=== PATIENT | female | born 1970 | race Caucasian/White ===

== ENCOUNTER 2023-01-05 04:05 | Emergency (ER) | payer MEDICAID, OTHER ==
[~2023-01-05] VITALS: Ht 165.1 cm; Wt 100.0 kg
[2023-01-05] MEDS ORDERED: PREG150C PO (04:19)
[2023-01-05] MEDS ORDERED: METR-265 PO (04:20)
[2023-01-05] MEDS ORDERED: ACET300T48 PO (04:20)
[2023-01-05] MEDS ORDERED: ATOR80TA59 PO (04:21)
[2023-01-05] MEDS ORDERED: LEVO1TAB39 PO (04:21)
[2023-01-05] MEDS ORDERED: CYCL5TAB PO (04:22)
[2023-01-05] MEDS ORDERED: ASPI81CH33 PO (04:22)
[2023-01-05] MEDS ORDERED: BRIL90TA PO (04:23)
[2023-01-05] MEDS ORDERED: NITR0.4S14 SL (04:23)
[2023-01-05] MEDS ORDERED: TRAZ1TAB14 PO (04:24)
[2023-01-05] MEDS ORDERED: KETOROLAC 30 MG/ML 1ML VIAL IV ONE (04:55)
[2023-01-05] MEDS ORDERED: NS 1,000 ML IV ONE (04:55)
[2023-01-05] MEDS ORDERED: ISOVUE-370 76% 100ML VIAL As Ordered ONE (05:00)
[2023-01-05 05:36] LABS: BASO # 0.1 10^3/uL (0.0-0.2); BASO % 0.6 % (0.0-1.0); EOS # 0.3 10^3/uL (0.0-0.5); EOS % 1.9 % (0.0-3.0); HEMATOCRIT 43.6 % (36.0-47.0); HEMOGLOBIN 14.3 g/dl (12.0-15.5); LYMPH # 2.4 10^3/uL (1.5-5.0); LYMPH % 16.5 % (24.0-44.0); MEAN CORPUSCULAR HEMOGLOBIN 28.4 pg (27.0-33.0); MEAN CORPUSCULAR HGB CONC 32.8 g/dl (32.0-36.5); MEAN CORPUSCULAR VOLUME 86.5 fl (80.0-96.0); MONO # 1.1 10^3/uL (0.0-0.8); MONO % 7.9 % (2.0-8.0); NEUTROPHILS # 10.5 10^3/uL (1.5-8.5); NEUTROPHILS % 72.7 % (36.0-66.0); PLATELET COUNT, AUTOMATED 318 10^3/uL (150-450); RED BLOOD COUNT 5.04 10^6/uL (4.00-5.40); WHITE BLOOD COUNT 14.4 10^3/uL (4.0-10.0)
[2023-01-05] MEDS ORDERED: diphenhydrAMINE 50MG/ML VIAL IV STA (07:39)
[2023-01-05] MEDS ORDERED: methylPREDNISolone 125MG 2ML VIAL IV ONE (07:40)
[2023-01-05] MEDS ORDERED: CLINDAMYCIN 150MG CAPSULE PO ONE (08:10)
[2023-01-05] MEDS ORDERED: CLEO300C2 PO (08:39)
[2023-01-05] MEDS ORDERED: PRED20TA PO (08:39)
[2023-01-05] MEDS ORDERED: HYDR-3713 PO (08:39)
[2023-01-05 08:49] VITALS: BP 123/70; TEMP 98; O2SAT 95
== END 2023-01-05 08:55 | disposition home or self-care (01) ==
LOC: M ED 04:05
DX: K04.7 Periapical abscess without sinus (principal); L03.211 Cellulitis of face; R22.0 Localized swelling, mass and lump, head; E78.5 Hyperlipidemia, unspecified; F17.200 Nicotine dependence, unspecified, uncomplicated; Z88.0 Allergy status to penicillin; Z79.1 Long term (current) use of non-steroidal anti-inflammatories (NSAID); Z79.52 Long term (current) use of systemic steroids; Z79.899 Other long term (current) drug therapy
CPT/HCPCS: 70491; 80047; 83605; 85025; 96374; 96375; 99283; J1200; J1885; J2930; Q9967

== ENCOUNTER → 2023-03-23 | Outpatient (CLI) | payer OTHER ==
[~2023-03-23] MED LIST: ACET300T48 PO; ASPI81CH33 PO; ATOR80TA59 PO; BRIL90TA PO; CLEO300C2 PO; CYCL5TAB PO; HYDR-3713 PO; LEVO1TAB39 PO; METR-265 PO; NITR0.4S14 SL; PRED20TA PO; PREG150C PO; TRAZ1TAB14 PO
== END ==
LOC: M SOG 08:02
PROVIDERS: ATTEND Orthopaedic Surgery
DX: Z53.9 Procedure and treatment not carried out, unspecified reason (principal)

== ENCOUNTER → 2023-05-31 | Outpatient (CLI) | payer OTHER ==
[~2023-05-31] MED LIST changes: -PREG150C PO; +PREG150C2 PO
[2023-05-31 16:02] LABS: BASO # 0.1 10^3/uL (0.0-0.2); BASO % 0.7 % (0.0-1.0); EOS # 0.4 10^3/uL (0.0-0.5); EOS % 3.7 % (0.0-3.0); HEMATOCRIT 47.1 % (36.0-47.0); HEMOGLOBIN 15.4 g/dl (12.0-15.5); LYMPH # 2.7 10^3/uL (1.5-5.0); LYMPH % 28.3 % (24.0-44.0); MEAN CORPUSCULAR HEMOGLOBIN 28.2 pg (27.0-33.0); MEAN CORPUSCULAR HGB CONC 32.7 g/dl (32.0-36.5); MEAN CORPUSCULAR VOLUME 86.3 fl (80.0-96.0); MONO # 0.7 10^3/uL (0.0-0.8); MONO % 7.6 % (2.0-8.0); NEUTROPHILS # 5.7 10^3/uL (1.5-8.5); NEUTROPHILS % 59.3 % (36.0-66.0); PLATELET COUNT, AUTOMATED 308 10^3/uL (150-450); RED BLOOD COUNT 5.46 10^6/uL (4.00-5.40); WHITE BLOOD COUNT 9.6 10^3/uL (4.0-10.0)
[2023-05-31 16:16] LABS: ERYTHROCYTE SEDIMENTATION RATE 36 mm/hr (0-30)
[2023-05-31 16:28] LABS: ALBUMIN 3.6 G/DL (3.2-5.2); ALKALINE PHOSPHATASE 159 U/L (46-116); ALT/SGPT 38 U/L (7.0-40); AST/SGOT 23 U/L (<34); BILIRUBIN,TOTAL 0.7 MG/DL (0.3-1.2); BLOOD UREA NITROGEN 14 MG/DL (9-23); CALCIUM LEVEL 9.2 MG/DL (8.5-10.1); CARBON DIOXIDE LEVEL 26 MMOL/L (20-31); CHLORIDE LEVEL 106 MMOL/L (98-107); CREATININE FOR GFR 0.77 MG/DL (0.55-1.30); GLOMERULAR FILTRATION RATE > 60.0 (>51); GLUCOSE, FASTING 85 MG/DL (60-100); POTASSIUM SERUM 4.3 MMOL/L (3.5-5.1); SODIUM LEVEL 141 MMOL/L (136-145); TOTAL PROTEIN 7.3 G/DL (5.7-8.2)
[2023-05-31 16:29] LABS: RHEUMATOID FACTOR QUANT < 3.5 IU/ML (<14)
[2023-05-31 16:30] LABS: THYROID STIMULATING HORMONE 2.352 uIU/ML (0.55-4.78); VITAMIN B12 LEVEL 603 PG/ML (211-911)
[2023-05-31 16:54] LABS: FREE T4 1.19 NG/DL (0.89-1.76)
== END ==
LOC: M LAB 14:23
PROVIDERS: ATTEND Psychiatry & Neurology Neurology
DX: E11.9 Type 2 diabetes mellitus without complications (principal); E07.9 Disorder of thyroid, unspecified; E53.8 Deficiency of other specified B group vitamins; R41.3 Other amnesia

== ENCOUNTER → 2023-05-31 | Outpatient (CLI) | payer OTHER ==
[2023-05-31 16:08] LABS: APPEARANCE, URINE HAZY (CLEAR); BACTERIA, URINE AUTO 2+ (NEGATIVE); BILIRUBIN, URINE AUTO NEGATIVE (NEGATIVE); BLOOD, URINE BLOOD 1+ (NEGATIVE); COLOR, URINE YELLOW (YELLOW); GLUCOSE, URINE (UA) AUTO NEGATIVE (NEGATIVE); KETONE, URINE AUTO NEGATIVE (NEGATIVE); LEUKOCYTE ESTERASE, URINE AUTO 3+ (NEGATIVE); MUCUS, URINE SMALL (NEGATIVE); NITRITE, URINE AUTO NEGATIVE (NEGATIVE); PROTEIN, URINE AUTO NEGATIVE (NEGATIVE); RBC, URINE AUTO 5 /HPF (0-3); SPECIFIC GRAVITY URINE AUTO 1.024 (1.002-1.035); SQUAMOUS EPITHELIAL CELL UR AU 2 /HPF (0-6); UROBILINOGEN, URINE AUTO 0.2 mg/dL (0.0-2.0); WBC, URINE AUTO 118 /HPF (0-3)
== END ==
LOC: M LAB 14:02
PROVIDERS: ATTEND Family Medicine
DX: I25.10 Atherosclerotic heart disease of native coronary artery without angina pectoris (principal)

== ENCOUNTER → 2023-05-31 | Outpatient (CLI) | payer OTHER ==
[2023-05-31 17:42] LABS: ALBUMIN 3.6 G/DL (3.2-5.2); ALKALINE PHOSPHATASE 162 U/L (46-116); ALT/SGPT 40 U/L (7.0-40); AST/SGOT 23 U/L (<34); BILIRUBIN,TOTAL 0.7 MG/DL (0.3-1.2); BLOOD UREA NITROGEN 14 MG/DL (9-23); CALCIUM LEVEL 9.3 MG/DL (8.5-10.1); CARBON DIOXIDE LEVEL 26 MMOL/L (20-31); CHLORIDE LEVEL 107 MMOL/L (98-107); CHOLESTEROL LEVEL 209 MG/DL (<200); CHOLESTEROL RISK RATIO 5.48 (<5); CREATININE FOR GFR 0.75 MG/DL (0.55-1.30); GLOMERULAR FILTRATION RATE > 60.0 (>51); GLUCOSE, FASTING 88 MG/DL (60-100); HDL CHOLESTEROL 38.1 MG/DL (>40); LDL CHOLESTEROL 134.9 MG/DL (<100); NON-HDL-C 170.9 MG/DL; POTASSIUM SERUM 4.3 MMOL/L (3.5-5.1); SODIUM LEVEL 142 MMOL/L (136-145); TOTAL PROTEIN 7.5 G/DL (5.7-8.2); TRIGLYCERIDES LEVEL 180 MG/DL (<150)
== END ==
LOC: M LAB 14:20
PROVIDERS: ATTEND Nurse Practitioner Family
DX: E78.5 Hyperlipidemia, unspecified (principal)

== ENCOUNTER → 2023-06-18 | Outpatient (CLI) | payer OTHER ==
[~2023-06-18] MED LIST changes: +CIPR500T39 PO; +EZET10TA21 PO; +GABA-1171 PO; +MOME0.1C3 TOP; +NAPR-885 PO; +VALA1TAB5 PO
== END ==
LOC: M SOG 07:58
PROVIDERS: ATTEND Orthopaedic Surgery
DX: M25.561 Pain in right knee (principal); M25.562 Pain in left knee

== ENCOUNTER → 2023-06-26 | Day surgery (SDC) | payer OTHER ==
[~2023-06-26] VITALS: Ht 167.6 cm; Wt 105.4 kg
[~2023-06-26] MED LIST changes: +BSS IRR 500ML/OMIDRIA 4ML IRR BAG (OR ONLY) As Ordered ONE; +CYCLOPENTOLATE 1% OPHTH SOLN 2ML BTL OD SCH; +LIDOCAINE 1% SDV 5ML VIAL As Ordered ONE; +MIDAZOLAM INJ 2MG/2ML VIAL As Ordered ONE; +MOXIFLOXACIN 0.6MG/0.4ML INTRAOCULAR SYRINGE IO ONE; +OFLOXACIN 0.3 % (OCUFLOX) OPTH SOL 5ML OD SCH; +PHENYLEPHRINE 2.5% OPHTH SOL 2ML OD SCH; +POVIDONE-IODINE 5% OPHTH PREP SOL 30ML As Ordered ONE; +PROPARACAINE 0.5% OPHTH SOL 15ML OD ONE; +TROPICAMIDE 1% OPHTH SOLN 15ML OD SCH; +fentaNYL 100 MCG/2 ML INJECTION As Ordered ONE
[2023-06-26 09:02] VITALS: TEMP 96.3; O2SAT 94
[2023-06-26 09:05] VITALS: BP 156/80
== END | disposition home or self-care (01) ==
LOC: M SDC 07:21
PROVIDERS: ATTEND Ophthalmology
DX: H25.11 Age-related nuclear cataract, right eye (principal); I25.2 Old myocardial infarction; I10 Essential (primary) hypertension; Z95.5 Presence of coronary angioplasty implant and graft; E78.00 Pure hypercholesterolemia, unspecified; Z88.0 Allergy status to penicillin; Z79.899 Other long term (current) drug therapy; Z79.82 Long term (current) use of aspirin; Z79.2 Long term (current) use of antibiotics; Z79.1 Long term (current) use of non-steroidal anti-inflammatories (NSAID); F17.210 Nicotine dependence, cigarettes, uncomplicated
CPT/HCPCS: 66984; J1097; J2250; J3010; V2632

== ENCOUNTER → 2023-07-19 | Outpatient (CLI) | payer OTHER ==
[~2023-07-19] MED LIST changes: +ALPR0.25 PO; +ASPI81CH48 PO; -BSS IRR 500ML/OMIDRIA 4ML IRR BAG (OR ONLY) As Ordered ONE; -CYCLOPENTOLATE 1% OPHTH SOLN 2ML BTL OD SCH; -LIDOCAINE 1% SDV 5ML VIAL As Ordered ONE; -MIDAZOLAM INJ 2MG/2ML VIAL As Ordered ONE; -MOXIFLOXACIN 0.6MG/0.4ML INTRAOCULAR SYRINGE IO ONE; -OFLOXACIN 0.3 % (OCUFLOX) OPTH SOL 5ML OD SCH; -PHENYLEPHRINE 2.5% OPHTH SOL 2ML OD SCH; -POVIDONE-IODINE 5% OPHTH PREP SOL 30ML As Ordered ONE; -PROPARACAINE 0.5% OPHTH SOL 15ML OD ONE; -TROPICAMIDE 1% OPHTH SOLN 15ML OD SCH; +VALA500T5 PO; -fentaNYL 100 MCG/2 ML INJECTION As Ordered ONE
== END ==
LOC: M RAD 14:38
PROVIDERS: ATTEND Family Medicine
DX: M79.671 Pain in right foot (principal)

== ENCOUNTER → 2023-07-20 | Outpatient (CLI) | payer OTHER | LOC: M PLARAD 11:51 | PROVIDERS: ATTEND Orthopaedic Surgery | DX: M17.0 Bilateral primary osteoarthritis of knee (principal) ==

== ENCOUNTER 2023-07-31 08:23 | Day surgery (SDC) | payer OTHER ==
[~2023-07-31] VITALS: Ht 167.6 cm; Wt 105.8 kg
[~2023-07-31 08:23] MED LIST changes: +CYCLOPENTOLATE 1% OPHTH SOLN 2ML BTL OS SCH; +LIDOCAINE 1% SDV 5ML VIAL As Ordered ONE; +MOXIFLOXACIN 0.6MG/0.4ML INTRAOCULAR SYRINGE IO ONE; +OFLOXACIN 0.3 % (OCUFLOX) OPTH SOL 5ML OS SCH; +PHENYLEPHRINE 2.5% OPHTH SOL 2ML OS SCH; +PROPARACAINE 0.5% OPHTH SOL 15ML OS ONE; +TROPICAMIDE 1% OPHTH SOLN 15ML OS SCH
[2023-07-31] MEDS ORDERED: fentaNYL 100 MCG/2 ML INJECTION As Ordered ONE (08:52)
[2023-07-31] MEDS ORDERED: MIDAZOLAM INJ 2MG/2ML VIAL As Ordered ONE (08:52)
[2023-07-31] MEDS ORDERED: BSS IRR 500ML/OMIDRIA 4ML IRR BAG (OR ONLY) As Ordered ONE (09:22)
[2023-07-31 09:55] VITALS: BP 129/75; TEMP 97.4; O2SAT 96
== END 2023-07-31 10:08 | disposition home or self-care (01) ==
LOC: M SDC 08:23
PROVIDERS: ATTEND Ophthalmology
DX: H25.12 Age-related nuclear cataract, left eye (principal); I10 Essential (primary) hypertension; I25.2 Old myocardial infarction; Z95.5 Presence of coronary angioplasty implant and graft; E78.00 Pure hypercholesterolemia, unspecified; Z86.718 Personal history of other venous thrombosis and embolism; F41.0 Panic disorder [episodic paroxysmal anxiety]; F44.5 Conversion disorder with seizures or convulsions; Z88.0 Allergy status to penicillin; Z87.891 Personal history of nicotine dependence; Z79.899 Other long term (current) drug therapy; Z79.82 Long term (current) use of aspirin; Z79.1 Long term (current) use of non-steroidal anti-inflammatories (NSAID)
CPT/HCPCS: 66984; J1097; J2250; J3010; V2632

== ENCOUNTER → 2023-08-15 | Outpatient (CLI) | payer OTHER ==
[~2023-08-15] MED LIST changes: -CYCLOPENTOLATE 1% OPHTH SOLN 2ML BTL OS SCH; -LIDOCAINE 1% SDV 5ML VIAL As Ordered ONE; -MOXIFLOXACIN 0.6MG/0.4ML INTRAOCULAR SYRINGE IO ONE; -OFLOXACIN 0.3 % (OCUFLOX) OPTH SOL 5ML OS SCH; -PHENYLEPHRINE 2.5% OPHTH SOL 2ML OS SCH; -PROPARACAINE 0.5% OPHTH SOL 15ML OS ONE; -TROPICAMIDE 1% OPHTH SOLN 15ML OS SCH
== END ==
LOC: M SOG 08:06
PROVIDERS: ATTEND Physician Assistant
DX: M25.552 Pain in left hip (principal); M25.551 Pain in right hip; Z53.9 Procedure and treatment not carried out, unspecified reason

== ENCOUNTER → 2023-09-04 | Outpatient (CLI) | payer OTHER | LOC: M SOG 07:53 | PROVIDERS: ATTEND Physician Assistant | DX: M25.521 Pain in right elbow (principal); M25.522 Pain in left elbow ==

== ENCOUNTER 2023-10-09 14:36 | Emergency (ER) | payer OTHER ==
[~2023-10-09] VITALS: Ht 162.6 cm; Wt 98.5 kg
[2023-10-09 14:37] VITALS: BP 138/85; TEMP 97.3; O2SAT 96
[2023-10-09] MEDS ORDERED: LEVO750T14 PO (22:51)
[2023-10-09] MEDS ORDERED: METR-265 PO (22:51)
[2023-10-09] MEDS ORDERED: PERI0.126 PO (22:56)
[2023-10-10] MEDS ORDERED: LEVO1TAB40 PO (23:37)
[2023-10-10] MEDS ORDERED: FLUO-96 PO (23:37)
[2023-10-10] MEDS ORDERED: DICL100G10 TOP (23:37)
[2023-10-10] MEDS ORDERED: PERI12LIQ SSP (23:37)
[2023-10-10] MEDS ORDERED: NITR4TASL SL (23:37)
[2023-10-10] MEDS ORDERED: ATOR80TA59 PO (23:37)
== END 2023-10-09 16:24 | disposition left against medical advice (07) ==
LOC: M ED 14:36
DX: Z53.21 Procedure and treatment not carried out due to patient leaving prior to being seen by health care provider (principal)

== ENCOUNTER 2023-10-09 20:36 | Emergency (ER) | payer OTHER ==
[~2023-10-09] VITALS: Ht 162.6 cm; Wt 107.2 kg
[2023-10-09] MEDS: KETOROLAC 30 MG/ML 1ML VIAL IV ONE (21:01)
[2023-10-09] MEDS: NS 1,000 ML IV ONE ×2 (21:02)
[2023-10-09 21:04] LABS: BASO # 0.1 10^3/uL (0.0-0.2); BASO % 0.6 % (0.0-1.0); EOS # 0.4 10^3/uL (0.0-0.5); HEMATOCRIT 44.3 % (36.0-47.0); HEMOGLOBIN 14.8 g/dl (12.0-15.5); LYMPH # 4.7 10^3/uL (1.5-5.0); LYMPH % 25.8 % (24.0-44.0); MEAN CORPUSCULAR HGB CONC 33.4 g/dl (32.0-36.5); MEAN CORPUSCULAR VOLUME 86.9 fl (80.0-96.0); MONO # 1.7 10^3/uL (0.0-0.8); MONO % 9.2 % (2.0-8.0); NEUTROPHILS # 11.3 10^3/uL (1.5-8.5); NEUTROPHILS % 61.8 % (36.0-66.0); PLATELET COUNT, AUTOMATED 322 10^3/uL (150-450); WHITE BLOOD COUNT 18.2 10^3/uL (4.0-10.0)
[2023-10-09 21:15] LABS: ERYTHROCYTE SEDIMENTATION RATE 42 mm/hr (0-30)
[2023-10-09 21:26] LABS: CK-MB VALUE MASS < 1.0 NG/ML (<3.6)
[2023-10-09 21:28] LABS: CPK CREATINE PHOSPHOKINASE 82 U/L (34-145); MB/CK RELATIVE INDEX 1.21 (< OR =4)
[2023-10-09 21:29] LABS: ALBUMIN 3.7 G/DL (3.2-5.2); ALKALINE PHOSPHATASE 190 U/L (46-116); ALT/SGPT 42 U/L (7.0-40); AST/SGOT 18 U/L (<34); BILIRUBIN,DIRECT 0.2 MG/DL (<0.4); BILIRUBIN,TOTAL 0.5 MG/DL (0.3-1.2); BLOOD UREA NITROGEN 19 MG/DL (9-23); CALCIUM LEVEL 8.5 MG/DL (8.5-10.1); CARBON DIOXIDE LEVEL 23 MMOL/L (20-31); CHLORIDE LEVEL 110 MMOL/L (98-107); CREATININE FOR GFR 0.73 MG/DL (0.55-1.30); GLOMERULAR FILTRATION RATE > 60.0 (>51); GLUCOSE, FASTING 107 MG/DL (60-100); SODIUM LEVEL 138 MMOL/L (136-145); TOTAL PROTEIN 6.9 G/DL (5.7-8.2)
[2023-10-09 21:31] LABS: FREE T4 1.22 NG/DL (0.89-1.76); THYROID STIMULATING HORMONE 1.649 uIU/ML (0.55-4.78)
[2023-10-09] MEDS ORDERED: ISOVUE-370 76% 100ML VIAL As Ordered ONE (21:31)
[2023-10-09 21:37] LABS: HCG, SERUM QUALITATIVE NEGATIVE (NEGATIVE)
[2023-10-09] MEDS: VANCOMYCIN HCL 1,000 MG, VIAL MATE ADAPTER 1 EACH in D5W 250 ML IV ONE (22:07)
[2023-10-09] MEDS: LevoFLOXacin IV 750 MG in IV 1 EA IV ONE (22:46)
[2023-10-09] MEDS: MORPHINE 4 MG/ML 1ML VIAL IV ONE (22:46)
[2023-10-09] MEDS ORDERED: METR-265 PO (22:51)
[2023-10-09] MEDS ORDERED: LEVO750T14 PO (22:51)
[2023-10-09] MEDS ORDERED: PERI0.126 PO (22:56)
[2023-10-09] MEDS ORDERED: metroNIDAZOLE 500 MG in IV 1 EA IV ONE (23:00)
[2023-10-09 23:26] VITALS: BP 124/88; TEMP 98.8; O2SAT 98
[2023-10-10] MEDS ORDERED: FLUO-96 PO (23:37)
[2023-10-10] MEDS ORDERED: ATOR80TA59 PO (23:37)
[2023-10-10] MEDS ORDERED: DICL100G10 TOP (23:37)
[2023-10-10] MEDS ORDERED: LEVO1TAB40 PO (23:37)
[2023-10-10] MEDS ORDERED: NITR4TASL SL (23:37)
[2023-10-10] MEDS ORDERED: PERI12LIQ SSP (23:37)
== END 2023-10-09 23:29 | disposition left against medical advice (07) ==
LOC: M ED 20:36
DX: J36 Peritonsillar abscess (principal); L03.211 Cellulitis of face; I25.119 Atherosclerotic heart disease of native coronary artery with unspecified angina pectoris; I25.2 Old myocardial infarction; R00.0 Tachycardia, unspecified; F17.210 Nicotine dependence, cigarettes, uncomplicated; Z88.0 Allergy status to penicillin; Z79.899 Other long term (current) drug therapy; Z79.1 Long term (current) use of non-steroidal anti-inflammatories (NSAID); Z53.9 Procedure and treatment not carried out, unspecified reason
CPT/HCPCS: 70487; 70491; 71045; 80048; 80076; 82550; 82553; 84439; 84443; 84703; 85025; 85652; 86140; 87040; 93005; 93041; 94760; 96361; 96365; 96366; 96375; 99285; J1885; J1956; J3370; Q9967

== ENCOUNTER 2023-10-10 18:39 | Observation (INO) | payer OTHER ==
[~2023-10-10] VITALS: Ht 162.6 cm; Wt 105.4 kg
[~2023-10-10 18:39] MED LIST changes: +LEVO750T14 PO; +PERI0.126 PO
[2023-10-10 20:50] LABS: BASO # 0.1 10^3/uL (0.0-0.2); BASO % 0.6 % (0.0-1.0); EOS # 0.4 10^3/uL (0.0-0.5); EOS % 2.7 % (0.0-3.0); HEMATOCRIT 42.2 % (36.0-47.0); HEMOGLOBIN 13.9 g/dl (12.0-15.5); LYMPH # 3.2 10^3/uL (1.5-5.0); LYMPH % 23.1 % (24.0-44.0); MEAN CORPUSCULAR HEMOGLOBIN 28.9 pg (27.0-33.0); MEAN CORPUSCULAR HGB CONC 32.9 g/dl (32.0-36.5); MEAN CORPUSCULAR VOLUME 87.7 fl (80.0-96.0); MONO # 1.2 10^3/uL (0.0-0.8); NEUTROPHILS # 8.8 10^3/uL (1.5-8.5); NEUTROPHILS % 63.9 % (36.0-66.0); PLATELET COUNT, AUTOMATED 269 10^3/uL (150-450); RED BLOOD COUNT 4.81 10^6/uL (4.00-5.40); WHITE BLOOD COUNT 13.7 10^3/uL (4.0-10.0)
[2023-10-10 21:12] LABS: BLOOD UREA NITROGEN 14 MG/DL (9-23); CARBON DIOXIDE LEVEL 26 MMOL/L (20-31); CHLORIDE LEVEL 110 MMOL/L (98-107); CREATININE FOR GFR 0.71 MG/DL (0.55-1.30); GLOMERULAR FILTRATION RATE > 60.0 (>51); GLUCOSE, FASTING 100 MG/DL (60-100); SODIUM LEVEL 142 MMOL/L (136-145)
[2023-10-10] MEDS: dexAMETHasone 20MG/5ML VIAL IV ONE (21:23)
[2023-10-10] MEDS: MORPHINE 2 MG/ML 1ML VIAL IV ONE (21:24)
[2023-10-10] MEDS: CLINDAMYCIN 600 MG in IV 1 EA IV SCH (21:49)
[2023-10-10] MEDS: NICOTINE 21MG/24HR 1 EA TRANSDERMAL TD ONE (21:49)
[2023-10-10 21:52] LABS: RSV AMPLIFICATION NEGATIVE (NEGATIVE)
[2023-10-10] MEDS ORDERED: NITR4TASL SL (23:37)
[2023-10-10] MEDS ORDERED: LEVO1TAB40 PO (23:37)
[2023-10-10] MEDS ORDERED: PERI12LIQ SSP (23:37)
[2023-10-10] MEDS ORDERED: DICL100G10 TOP (23:37)
[2023-10-10] MEDS ORDERED: FLUO-96 PO (23:37)
[2023-10-10] MEDS ORDERED: ATOR80TA59 PO (23:37)
[2023-10-10] MEDS ORDERED: HOME MED LIST COMPLETE! XX SCH (23:40)
[2023-10-11 00:46] VITALS: BP 120/77; TEMP 97.3; O2SAT 93
[2023-10-11] MEDS ORDERED: KETOROLAC 30 MG/ML 1ML VIAL IV PRN (01:50)
[2023-10-11] MEDS ORDERED: ACETAMINOPHEN TAB 650MG DOSE (2X325MG) PO PRN (01:50)
[2023-10-11 02:17] VITALS: BP 100/62; TEMP 97.3; O2SAT 93
[2023-10-11] MEDS ORDERED: LACTATED RINGER'S 1000 ML IV ONE (02:45)
[2023-10-11] MEDS: LR 1,000 ML IV ONE (02:55)
[2023-10-11] MEDS ORDERED: dexAMETHasone 20MG/5ML VIAL IV ONE (02:55)
[2023-10-11 03:14] LABS: BASO % 0.2 % (0.0-1.0); EOS % 0.1 % (0.0-3.0); HEMATOCRIT 38.6 % (36.0-47.0); HEMOGLOBIN 12.7 g/dl (12.0-15.5); LYMPH # 1.3 10^3/uL (1.5-5.0); LYMPH % 10.4 % (24.0-44.0); MEAN CORPUSCULAR HEMOGLOBIN 29.1 pg (27.0-33.0); MEAN CORPUSCULAR HGB CONC 32.9 g/dl (32.0-36.5); MEAN CORPUSCULAR VOLUME 88.3 fl (80.0-96.0); MONO # 0.1 10^3/uL (0.0-0.8); MONO % 0.7 % (2.0-8.0); NEUTROPHILS # 11.1 10^3/uL (1.5-8.5); NEUTROPHILS % 87.9 % (36.0-66.0); PLATELET COUNT, AUTOMATED 250 10^3/uL (150-450); RED BLOOD COUNT 4.37 10^6/uL (4.00-5.40); WHITE BLOOD COUNT 12.6 10^3/uL (4.0-10.0)
[2023-10-11] MEDS: KETOROLAC 30 MG/ML 1ML VIAL IV PRN (03:23)
[2023-10-11] MEDS ORDERED: ALPRAZolam 0.25 MG TAB PO PRN (03:25)
[2023-10-11] MEDS: CLINDAMYCIN 600 MG in IV 1 EA IV SCH (03:35)
[2023-10-11 04:11] LABS: ALBUMIN 3.1 G/DL (3.2-5.2); ALKALINE PHOSPHATASE 168 U/L (46-116); ALT/SGPT 29 U/L (7.0-40); AST/SGOT 13 U/L (<34); BILIRUBIN,TOTAL 0.3 MG/DL (0.3-1.2); BLOOD UREA NITROGEN 16 MG/DL (9-23); CALCIUM LEVEL 8.8 MG/DL (8.5-10.1); CARBON DIOXIDE LEVEL 22 MMOL/L (20-31); CHLORIDE LEVEL 111 MMOL/L (98-107); CREATININE FOR GFR 0.71 MG/DL (0.55-1.30); GLOMERULAR FILTRATION RATE > 60.0 (>51); GLUCOSE, FASTING 191 MG/DL (60-100); POTASSIUM SERUM 4.3 MMOL/L (3.5-5.1); SODIUM LEVEL 139 MMOL/L (136-145); TOTAL PROTEIN 6.2 G/DL (5.7-8.2)
[2023-10-11 06:59] VITALS: BP_SYST 122; BP_SYST 97; BP_DIAS 60; BP_DIAS 78; TEMP 97.3; O2SAT 96
[2023-10-11] MEDS: dexAMETHasone 20MG/5ML VIAL IV ONE (08:52)
[2023-10-11] MEDS: GABAPENTIN 100 MG CAP PO SCH (08:53)
[2023-10-11] MEDS: SODIUM CHLORIDE 0.9% 1000ML IV STA (08:53)
[2023-10-11] MEDS: FLUoxetine 20MG CAP PO SCH (08:53)
[2023-10-11] MEDS: HEPARIN SOD (PORCINE) 5000UNITS/ML 1ML VIAL/SYRINGE SC SCH (09:00)
[2023-10-11 10:00] VITALS: BP 114/70; TEMP 97.7; O2SAT 94
[2023-10-11] MEDS ORDERED: OXYC1TAB23 PO (11:34)
[2023-10-11] MEDS: CHLORHEXIDINE GLUCONATE 0.12 % 15ML UDC (PERIDEX ORAL RINSE) SSP SCH (11:56)
[2023-10-11] MEDS ORDERED: PROBCAP14 PO (14:17)
[2023-10-11] MEDS ORDERED: CLIN150C17 PO (14:17)
[2023-10-11] MEDS: PERCOCET 5MG/325MG TAB PO PRN (15:02)
[2023-10-11] MEDS ORDERED: EZETIMIBE 10MG TABLET (ZETIA) PO SCH (21:00)
[2023-10-11] MEDS ORDERED: ATORVASTATIN 20 MG TAB PO SCH (21:00)
== END 2023-10-11 15:05 | disposition home or self-care (01) ==
LOC: M ED 18:39 → INTOOBSV 23:06 → M ED INP 23:06 → ENRESERV 23:56 → M MS5PR 10-11 00:50
PROVIDERS: ADMIT Internal Medicine; ATTEND Internal Medicine
DX: A41.9 Sepsis, unspecified organism (principal); K04.7 Periapical abscess without sinus; L03.211 Cellulitis of face; K06.9 Disorder of gingiva and edentulous alveolar ridge, unspecified; R00.0 Tachycardia, unspecified; R22.0 Localized swelling, mass and lump, head; H53 Visual disturbances; F41.9 Anxiety disorder, unspecified; F32.A Depression, unspecified; E78.5 Hyperlipidemia, unspecified; I25.10 Atherosclerotic heart disease of native coronary artery without angina pectoris; Z95.5 Presence of coronary angioplasty implant and graft; M79.7 Fibromyalgia; F17.200 Nicotine dependence, unspecified, uncomplicated; Z88.0 Allergy status to penicillin; Z79.899 Other long term (current) drug therapy; Z79.82 Long term (current) use of aspirin; Z79.2 Long term (current) use of antibiotics; Z79.1 Long term (current) use of non-steroidal anti-inflammatories (NSAID)
CPT/HCPCS: 70355; 80048; 80053; 83605; 83735; 84145; 85025; 86140; 87631; 96361; 96365; 96366; 96375; 96376; 99284; J0737; J1100; J1885

== ENCOUNTER 2024-01-25 07:22 | Day surgery (SDC) | payer OTHER ==
[~2024-01-25] VITALS: Ht 162.6 cm; Wt 106.6 kg
[~2024-01-25 07:22] MED LIST changes: +ACETAMINOPHEN 1000MG 100ML IV BAG As Ordered ONE; +CLIN150C17 PO; +DICL100G10 TOP; +DOXY100C3 PO; +FLUO-96 PO; +LEVO1TAB40 PO; +LIDOCAINE 2% 100MG/5ML SDV (FOR ANES.) As Ordered ONE; +MIDAZOLAM INJ 2MG/2ML VIAL As Ordered ONE; +NITR4TASL SL; +ONDANSETRON 4MG 2ML VIAL As Ordered ONE; +OXYC1TAB23 PO; +OXYMETAZOLINE 0.05% NASAL SPRAY (AFRIN) As Ordered ONE; +PERI12LIQ SSP; +PROBCAP14 PO; +ROCURONIUM BROMIDE 50MG/5ML VIAL As Ordered ONE; +SUGAMMADEX SODIUM 500 MG/5 ML VIAL (BRIDION) As Ordered ONE; +dexmedeTOMIDine (4MCG/ML)200MCG/50ML BTL (PRECEDEX) As Ordered ONE; +fentaNYL 100 MCG/2 ML INJECTION As Ordered ONE; +propofoL 200 MG/20 ML VIAL As Ordered ONE
[2024-01-25] MEDS ORDERED: LR 1,000 ML IV SCH ×2 (07:45→09:10)
[2024-01-25] MEDS: LIDOCAINE W/EPINEPHRINE 1% 20ML VIAL As Ordered ONE (08:20)
[2024-01-25] MEDS ORDERED: ONDANSETRON 4MG 2ML VIAL IV PRN (08:35)
[2024-01-25] MEDS ORDERED: fentaNYL 100 MCG/2 ML INJECTION IV PRN (08:35)
[2024-01-25] MEDS ORDERED: oxyCODONE 5MG TAB PO PRN (08:35)
[2024-01-25 09:39] VITALS: BP 131/80
[2024-01-25 10:01] VITALS: TEMP 97.6; O2SAT 97
== END 2024-01-25 10:05 | disposition home or self-care (01) ==
LOC: M SDC 07:22
PROVIDERS: ATTEND Dentist Oral and Maxillofacial Surgery
DX: K02.9 Dental caries, unspecified (principal); I10 Essential (primary) hypertension; E78.5 Hyperlipidemia, unspecified; I25.2 Old myocardial infarction; A60.00 Herpesviral infection of urogenital system, unspecified; M79.7 Fibromyalgia; F41.9 Anxiety disorder, unspecified; F32.A Depression, unspecified; J45.909 Unspecified asthma, uncomplicated; G43.909 Migraine, unspecified, not intractable, without status migrainosus; Z88.0 Allergy status to penicillin; Z91.030 Bee allergy status; Z98.61 Coronary angioplasty status; Z79.82 Long term (current) use of aspirin; Z79.899 Other long term (current) drug therapy; F17.218 Nicotine dependence, cigarettes, with other nicotine-induced disorders
CPT/HCPCS: 88300; D7210; D9223; J0131; J1100; J2250; J2405; J3010